=== PATIENT | female | born 1985 | race Caucasian/White ===

== ENCOUNTER 2019-05-26 15:06 | Emergency (ER) | payer OTHER, BC ==
[~2019-05-26] VITALS: Ht 162.6 cm; Wt 68.0 kg
[2019-05-26 15:15] VITALS: Ht 162.6 cm; Wt 68.0 kg
[2019-05-26 17:14] LABS: BASOPHIL % 0.4 % (0-2); PLATELET COUNT 313 x10^3mcL (130-400); RED CELL DISTRIBUTION WIDTH 12.9 % (11.5-14.5)
[2019-05-26 18:06] LABS: UA SPECIFIC GRAVITY >=1.030 (1.005-1.035); microscopic required? YES; urine erythrocyte 3+ (NEGATIVE)
[2019-05-26 19:13] VITALS: BP 121/68
== END 2019-05-26 19:13 | disposition home or self-care (01) ==
LOC: EDSEX 15:06 → ED 15:06
PROVIDERS: Specialist
DX: O03.9 Complete or unspecified spontaneous abortion without complication (principal)
CPT/HCPCS: 36415